=== PATIENT | male | born 1970 | race American Indian/Alaskan Native ===

== ENCOUNTER 2017-12-18 11:50 | Emergency (ER) | payer SELFPAY ==
[2017-12-18 11:59] VITALS: BP 110/75
[2017-12-18] MEDS ORDERED: TYLENOL ONE (11:59)
[2017-12-18] MEDS ORDERED: TYLENOL PO ONE (12:00)
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
== END 2017-12-18 13:41 | disposition home or self-care (01) ==
LOC: ED 11:50
DX: M54.9 Dorsalgia, unspecified (principal); V49.49XA Driver injured in collision with other motor vehicles in traffic accident, initial encounter; Y93.89 Activity, other specified; Y92.89 Other specified places as the place of occurrence of the external cause; Y99.8 Other external cause status
CPT/HCPCS: 99282